=== PATIENT | male | born 1975 | race Caucasian/White ===

== ENCOUNTER → 2020-10-03 | Outpatient (REF) | payer OTHER ==
[2020-10-03 15:40] LABS: BASO # 0.1 10^3/uL (0.0-0.2); BASO % 1.2 % (0.0-1.0); EOS # 0.1 10^3/uL (0.0-0.5); EOS % 2.2 % (0.0-3.0); HEMATOCRIT 48.5 % (42.0-52.0); HEMOGLOBIN 16.7 g/dl (13.5-17.5); LYMPH # 1.4 10^3/uL (1.5-5.0); LYMPH % 22.7 % (24.0-44.0); MEAN CORPUSCULAR HEMOGLOBIN 31.2 pg (27.0-33.0); MEAN CORPUSCULAR HGB CONC 34.4 g/dl (32.0-36.5); MEAN CORPUSCULAR VOLUME 90.5 fl (80.0-96.0); MONO # 0.7 10^3/uL (0.0-0.8); NEUTROPHILS # 3.7 10^3/uL (1.5-8.5); NEUTROPHILS % 62.4 % (36.0-66.0); PLATELET COUNT, AUTOMATED 236 10^3/uL (150-450); RED BLOOD COUNT 5.36 10^6/uL (4.30-6.10)
[2020-10-03 15:45] LABS: MONO SCRN NEGATIVE (NEGATIVE)
== END ==
LOC: M LAB REF 15:18
PROVIDERS: ATTEND Physician Assistant
DX: R50.9 Fever, unspecified (principal)

== ENCOUNTER 2021-01-26 14:19 | Emergency (ER) | payer BC, OTHER ==
[~2021-01-26] VITALS: Ht 182.9 cm; Wt 100.0 kg
[2021-01-26] MEDS ORDERED: HYDR-3490 (14:32)
[2021-01-26] MEDS ORDERED: LOSA100T50 (14:32)
[2021-01-26] MEDS ORDERED: ATEN50TA2 (14:32)
[2021-01-26] MEDS ORDERED: MINO2.5T (14:32)
[2021-01-26] MEDS ORDERED: NS 1,000 ML IV ONE (16:20)
[2021-01-26 17:05] LABS: BASO % 0.4 % (0.0-1.0); EOS % 0.3 % (0.0-3.0); HEMATOCRIT 48.7 % (42.0-52.0); HEMOGLOBIN 17.1 g/dl (13.5-17.5); LYMPH # 1.1 10^3/uL (1.5-5.0); LYMPH % 9.6 % (24.0-44.0); MEAN CORPUSCULAR HEMOGLOBIN 32.1 pg (27.0-33.0); MEAN CORPUSCULAR HGB CONC 35.1 g/dl (32.0-36.5); MEAN CORPUSCULAR VOLUME 91.4 fl (80.0-96.0); MONO # 1.4 10^3/uL (0.0-0.8); MONO % 12.1 % (2.0-8.0); NEUTROPHILS # 8.8 10^3/uL (1.5-8.5); PLATELET COUNT, AUTOMATED 209 10^3/uL (150-450); RED BLOOD COUNT 5.33 10^6/uL (4.30-6.10); WHITE BLOOD COUNT 11.4 10^3/uL (4.0-10.0)
--- NOTE | 2021-01-26 17:16 | REP ---
INDICATION: swelling, tenderness COMPARISON: 04/03/2012. TECHNIQUE: There are five views. FINDINGS: There is soft tissue thickening and likely edema inferior to the patella and medially. This is similar to the prior study. The patella appears displaced cephalic, also similar to the prior study. At the time of the prior study an MRI demonstrated patellar tendon rupture with the clark's point tendon torn from the inferior pole of the patella. Findings today again suggest patellar tendon rupture. There is no fracture. No joint effusion. Mineralization and joint spaces are unremarkable. IMPRESSION: Infrapatellar soft tissue thickening, possibly edema and slight superior displacement of the patellar compatible patellar tendon rupture, as previously. This should be correlated clinically. MRI might be considered for confirmation. <Electronically signed by Babar Conteh > 01/26/21 [id number]
[2021-01-26 17:29] LABS: C REACTIVE PROTEIN QUANTITATIV 12.8 MG/DL (0.00-0.30); ERYTHROCYTE SEDIMENTATION RATE 16 mm/hr (0-15); URIC ACID 6.6 MG/DL (3.5-7.2)
[2021-01-26] MEDS ORDERED: ACETAMINOPHEN 500 MG TAB PO ONE (18:10)
--- NOTE | 2021-01-26 20:26 | REPVR ---
PROCEDURE INFORMATION: Exam: MR Left Lower Extremity Joint Without Contrast, Knee Exam date and time: 01/26/2021 8:09 PM Age: 45 years old Clinical indication: Knee; Left; Prior surgery; Surgery date: 6+ months; Surgery type: Patellar tendon repair >10 years prior; Patient HX: PT states patellar tendon rupture 10 years prior with SX to fix tear, no recent injury, swelling for two days redness, pain; Additional info: Possible patellar tendon rupture, no wilfredo, swelling TECHNIQUE: Imaging protocol: MR of the Left lower extremity joint without contrast. Exam focused on the knee. COMPARISON: CR Knee, complete 01/26/2021 4:34 PM FINDINGS: Subcutaneous soft tissue swelling anteriorly, with edema or hemorrhage in Hoffa's fat, and moderately large knee joint effusion is also present Osseous structures are normally aligned Normal overall pattern of marrow signal. No diffuse marrow replacement process. No acute fracture or osteochondral lesion. Elongated lower pole patella consistent with prior patellar tendon abnormality, and edema and cystic change in the lower pole patella. No evidence of an acute fracture. There is however a recurrent tear of the proximal patellar ligament from the lower pole patella, with thickening, intermediate signal and macerated appearance of the proximal 3 cm of the patellar ligament. There may be a few superficial fibers anteriorly remaining intact but the majority of the ligament is torn and retracted roughly 1 cm. The distal attachment on the tibia is intact. Quadriceps tendon is normal and I do not see evidence of acute patellar retinacular tear Medial collateral ligament is intact. IT band, FCL, biceps femoris tendon and popliteus tendon are unremarkable. ACL and PCL have normal orientation and signal. Medial meniscus appears normal. No communicating tear or para-meniscal cyst. Lateral meniscus appears normal. No communicating tear or para-meniscal cyst. Cartilage signal and thickness is maintained in all compartments of the knee aside from mild medial compartment chondral thinning IMPRESSION: Recurrent tear of the proximal patellar ligament from the inferior pole patella, essentially complete, with roughly 1 cm of retraction and with macerated appearing proximal 3 cm of ligament. No osseous fracture deformity. Electronically signed by: Sascha Cuba On 01/26/2021 20:26:49 PM
[2021-01-26 20:57] VITALS: BP 129/80
--- NOTE | 2021-01-27 06:53 | ED PDOC ---
Post-Departure Follow-Up left knee xray and mri faxed to dr roberson for fu Nisha Sanches MD Jan 27, 2021 06:53
== END 2021-01-26 21:05 | disposition home or self-care (01) ==
LOC: M ED 14:19
DX: S96.812A Strain of other specified muscles and tendons at ankle and foot level, left foot, initial encounter (principal); X58.XXXA Exposure to other specified factors, initial encounter; Y92.89 Other specified places as the place of occurrence of the external cause; Y93.89 Activity, other specified; Y99.8 Other external cause status; I10 Essential (primary) hypertension; Z79.899 Other long term (current) drug therapy; Z87.828 Personal history of other (healed) physical injury and trauma

== ENCOUNTER 2021-02-06 11:15 | Day surgery (SDC) | payer BC, OTHER ==
[~2021-02-06] VITALS: Ht 182.9 cm; Wt 99.3 kg
[~2021-02-06 11:15] MED LIST: ATEN50TA2; HYDR-3490; LOSA100T50; LR 1,000 ML IV ONE; MINO2.5T; ceFAZolin SOD 2 GM in IV 1 EA IV ONE
[2021-02-06] MEDS ORDERED: ceFAZolin 1GM VIAL (J0690 PER 500MG) As Ordered ONE (12:52)
[2021-02-06] MEDS ORDERED: BUPIVACAINE/EPIN 0.25% 30 ML VIAL As Ordered ONE (13:00)
[2021-02-06] MEDS ORDERED: LIDOCAINE 2% 100MG/5ML SDV (FOR ANES.) As Ordered ONE (13:24)
[2021-02-06] MEDS ORDERED: fentaNYL 100 MCG/2 ML INJECTION (J3010) As Ordered ONE ×2 (13:24→16:19)
[2021-02-06] MEDS ORDERED: MIDAZOLAM INJ 2MG/2ML VIAL (J2250 PER 1MG) As Ordered ONE (13:24)
[2021-02-06] MEDS ORDERED: propofoL 200 MG/20 ML VIAL As Ordered ONE (13:24)
[2021-02-06] MEDS ORDERED: ePHEDrine SULFATE 25 MG/5 ML(5MG/ML) SYRINGE As Ordered ONE (13:58)
[2021-02-06] MEDS ORDERED: HYDROmorphone HCL 2 MG/ML 1ML VIAL (J1170) As Ordered ONE (14:33)
[2021-02-06] MEDS ORDERED: ONDANSETRON 4MG/2ML VIAL As Ordered ONE (16:09)
[2021-02-06] MEDS ORDERED: ACETAMINOPHEN TAB 650MG DOSE (2X325MG) PO PRN (16:20)
[2021-02-06] MEDS ORDERED: LR 1,000 ML IV SCH ×2 (16:20)
[2021-02-06] MEDS ORDERED: ONDANSETRON 4MG/2ML VIAL IV PRN ×2 (16:20→16:25)
[2021-02-06] MEDS: fentaNYL 100 MCG/2 ML INJECTION (J3010) IV PRN ×4 (16:20→16:37)
[2021-02-06] MEDS ORDERED: PERCOCET 5MG/325MG TAB PO PRN (16:25)
[2021-02-06] MEDS ORDERED: MORPHINE 2 MG/ML 1ML VIAL (J2270) IV PRN (16:25)
[2021-02-06] MEDS: oxyCODONE 5MG TAB PO PRN ×2 (16:27→16:57)
[2021-02-06] MEDS: HYDROMORPHONE HCL 0.5 MG/ 0.5 ML SYRINGE (J1170 PER 1) IV PRN ×2 (16:42→16:47)
[2021-02-06 17:30] VITALS: BP 170/98
--- NOTE | 2021-02-06 18:01 | ROOPDOC ---
[facility] Report Of Operation Report of Operation DATE OF PROCEDURE: 02/06/21 PREPROCEDURE DIAGNOSES: Left patellar tendon rupture. POSTPROCEDURE DIAGNOSES: Left patellar tendon rupture. PROCEDURE: Left patellar tendon repair with allograft patch Arthrex acellular dermis SURGEON: Dr. Faisal Del Real MD ENVIRONMENTAL AIR SPECIALIST: ANESTHESIA: Gen. anesthesia Dr. Roper. ESTIMATED BLOOD LOSS: Approximately 50 mL. COMPLICATIONS: None. REMARKS: None. PROCEDURE NOTE: This 45-year-old man had 2-3 weeks of inability to ambulate and increasing knee pain. MRI is consistent with patellar tendon rupture. He has stage II kidney disease. I discussed the pros and cons risks and benefits of nonsurgical treatment versus surgical repair possible need for allograft patch. He understands wish to proceed marked left lower extremity. DESCRIPTION OF PROCEDURE: Patient was brought to the operating theater. They were placed supine on the operating room table. Tourniquet was applied to the left thigh properly padded. All bony prominences were appropriately padded. Gen. anesthesia was induced. 2 g of IV Ancef was administered prior to starting the case. Limb was prepped and draped in the usual sterile fashion with chlorhexidine-based prep solution over 3 minutes prep solution drying time prior to draping. Preoperative timeout was performed to confirm the site the patient and surgery. I began by elevating the limb and inflating the tourniquet to 250 mmHg. I made a standard anterior longitudinal incision using the old incision. I carried the dissection down through skin and subcutaneous tissue achieving meticulous hemostasis. There was quite a bit of scar tissue and adhesions to be lysed. I identified the patellar tendon. There is copious amount of scar tissue and stretching out the proximal end of the tendon, possibly chronic in nature or acute on chronic rupture and stretching of the previously placed sutures. I debrided this down to healthy margins of tendon. There was what appeared to be possible infection or old hematoma White dark brown reddish fluid that I did send for cultures and that turned out to be negative on the Gram stain. This is likely combination of gout fluid calcification and old hematoma. I used 2 #2 FiberWire sutures in a running locking Krakw type stitch up and down the patellar tendon to create 4 suture limbs proximally. I used a rongeur to create a bleeding bed at the distal end of the patella. I fixed the patella in full extension. I used 2 Arthrex 4.75 mm biocomposite suture anchors. I used the drill followed by the tap. The suture anchors were preloaded with fiber tape. I opened up the Arthrex acellular dermis patch. I trimmed this to fit. I secured the anchors the distal end of the patella with the leg in full extension to repair the [place] patellar tendon. I then passed the fiber tape sutures through each corner of the patch then to create a box and X configuration and then passed the sutures again through the distal corners of the patch. I then loaded these into PEEK suture anchors to secure the patch in place distally at the proximal border of the tibia, distal to the patellar tendon insertion. I then used the stay sutures at all 4 corners of the suture anchors to secure the graft again fully in place. Tourniquet was let down wounds thoroughly irrigated subcutaneous tissue closed with interrupted 2-0 Vicryl sutures and skin davon. Skin was cleaned with wet and dry dressing. 10 mL of quarter percent Marcaine was instilled and around the incision site. Adaptic 4 x 8 gauze and abdominal pad dressings were then placed and wrapped with 6 inch Juan Luis bandage. Patient left lower extremity was placed into a knee immobilizer in full extension. Patient was woken up from the general anesthetic transferred off the operating room table and taken to postanesthetic care unit in stable condition. All sponge needle and instrument counts are correct. No complications. Plan the patient is to be partial weightbearing in full extension for 4-6 weeks follow-up in the office in 2 weeks' time and be discharged home according to comfort. Prescription sent to the pharmacy of choice electronically. Risk factors for harms from taking opioid medications discussed and assessed including but not limited to personal or family history of substance use disorder, anxiety or depression, , age 65 or older, COPD or other underlying respiratory conditions, and renal or hepatic insufficiency. Discussed with patient concerns and determined any harms they may experience or be currently experiencing such as nausea or constipation, feeling sedated or confused, breathing interruptions during sleep, or taking or craving more opioids than prescribed or difficulty controlling use (addiction). Discussed early warning signs of overdose including confusion, sedation, slurred speech, abnormal gait. Postoperative wound instructions were given. It was recommended to keep the wound clean and dry. Dressing changes as needed. It was reinforced with the patient that they should call us or be seen immediately for redness, drainage, or fever. . FAISAL DEL REAL MD Feb 06, 2021 18:01
== END 2021-02-06 17:36 | disposition home or self-care (01) ==
LOC: M SDC 11:15
PROVIDERS: ATTEND Orthopaedic Surgery Sports Medicine
DX: M66.262 Spontaneous rupture of extensor tendons, left lower leg (principal); I12.9 Hypertensive chronic kidney disease with stage 1 through stage 4 chronic kidney disease, or unspecified chronic kidney disease; E78.00 Pure hypercholesterolemia, unspecified; K57.90 Diverticulosis of intestine, part unspecified, without perforation or abscess without bleeding; M25.562 Pain in left knee; F41.9 Anxiety disorder, unspecified; N18.2 Chronic kidney disease, stage 2 (mild); N40.0 Benign prostatic hyperplasia without lower urinary tract symptoms; F17.220 Nicotine dependence, chewing tobacco, uncomplicated; Z79.899 Other long term (current) drug therapy
CPT/HCPCS: 27381; 87070; 87075; 87077; 87205; C1713; C1762; J0690; J1170; J2250; J2405; J3010

== ENCOUNTER → 2021-02-18 | Outpatient (CLI) | payer BC, OTHER ==
[~2021-02-18] MED LIST changes: -LR 1,000 ML IV ONE; -ceFAZolin SOD 2 GM in IV 1 EA IV ONE
== END ==
LOC: M SOG 13:20
PROVIDERS: ATTEND Orthopaedic Surgery Sports Medicine
DX: Z53.8 Procedure and treatment not carried out for other reasons (principal)

== ENCOUNTER 2021-07-27 19:40 | Emergency (ER) | payer BC, OTHER ==
[~2021-07-27] VITALS: Ht 182.9 cm; Wt 106.0 kg
[2021-07-27 22:23] LABS: BASO # 0.1 10^3/uL (0.0-0.2); BASO % 0.7 % (0.0-1.0); EOS # 0.1 10^3/uL (0.0-0.5); EOS % 1.1 % (0.0-3.0); HEMATOCRIT 46.6 % (42.0-52.0); HEMOGLOBIN 17.2 g/dl (13.5-17.5); LYMPH # 1.4 10^3/uL (1.5-5.0); LYMPH % 15.1 % (24.0-44.0); MEAN CORPUSCULAR HEMOGLOBIN 33.1 pg (27.0-33.0); MEAN CORPUSCULAR HGB CONC 36.9 g/dl (32.0-36.5); MEAN CORPUSCULAR VOLUME 89.8 fl (80.0-96.0); MONO # 0.9 10^3/uL (0.0-0.8); MONO % 9.7 % (2.0-8.0); NEUTROPHILS # 6.8 10^3/uL (1.5-8.5); NEUTROPHILS % 72.9 % (36.0-66.0); PLATELET COUNT, AUTOMATED 178 10^3/uL (150-450); RED BLOOD COUNT 5.19 10^6/uL (4.30-6.10); WHITE BLOOD COUNT 9.4 10^3/uL (4.0-10.0)
[2021-07-27 23:04] VITALS: BP 138/88
--- NOTE | 2021-07-27 23:23 | REPVR ---
PROCEDURE INFORMATION: Exam: XR Chest Exam date and time: 07/27/2021 10:05 PM Age: 45 years old Clinical indication: Other: Cough and chest congestion TECHNIQUE: Imaging protocol: XR of the chest. Views: 1 view. COMPARISON: No relevant prior studies available. FINDINGS: Lungs: Asymmetric 0.9 cm nodule projects over the left upper lobe, in between the posterior aspects of the left 7th and 8th ribs, unlikely to be nipple shadow. No focal areas of consolidation. Pleural spaces: Unremarkable. No pleural effusion. No pneumothorax. Heart/Mediastinum: Cardiac and mediastinal silhouettes are unremarkable. Bones/joints: No acute fracture or dislocation. IMPRESSION: Asymmetric 0.9 cm nodule projects over the left upper lobe. Recommend follow-up chest CT. Electronically signed by: Castro Akers On 07/27/2021 23:22:53 PM
== END 2021-07-27 23:04 | disposition home or self-care (01) ==
LOC: M ED 19:40
DX: J06.9 Acute upper respiratory infection, unspecified (principal); B34.8 Other viral infections of unspecified site; I10 Essential (primary) hypertension; Z79.899 Other long term (current) drug therapy; F17.210 Nicotine dependence, cigarettes, uncomplicated

== ENCOUNTER 2022-01-20 16:12 | Emergency (ER) | payer BC, OTHER ==
[~2022-01-20] VITALS: Ht 182.9 cm; Wt 107.7 kg
[~2022-01-20 16:12] MED LIST changes: +LOSA100T45; -LOSA100T50
[2022-01-20] MEDS ORDERED: POTA1TAB23 (16:29)
[2022-01-20] MEDS ORDERED: MAGN50TA (16:29)
[2022-01-20] MEDS ORDERED: ATEN100T (16:29)
[2022-01-20 19:51] LABS: BASO # 0.1 10^3/uL (0.0-0.2); BASO % 0.6 % (0.0-1.0); EOS # 0.2 10^3/uL (0.0-0.5); EOS % 1.8 % (0.0-3.0); HEMATOCRIT 48.5 % (42.0-52.0); HEMOGLOBIN 17.5 g/dl (13.5-17.5); LYMPH # 1.7 10^3/uL (1.5-5.0); MEAN CORPUSCULAR HGB CONC 36.1 g/dl (32.0-36.5); MEAN CORPUSCULAR VOLUME 88.7 fl (80.0-96.0); MONO # 0.9 10^3/uL (0.0-0.8); MONO % 10.3 % (2.0-8.0); NEUTROPHILS # 5.6 10^3/uL (1.5-8.5); NEUTROPHILS % 66.9 % (36.0-66.0); PLATELET COUNT, AUTOMATED 225 10^3/uL (150-450); RED BLOOD COUNT 5.47 10^6/uL (4.30-6.10); WHITE BLOOD COUNT 8.4 10^3/uL (4.0-10.0)
[2022-01-20 20:17] LABS: CK-MB VALUE MASS < 1.0 NG/ML (<3.6); CPK CREATINE PHOSPHOKINASE 96 U/L (39-308); MB/CK RELATIVE INDEX 1.04 (< OR =4)
[2022-01-20 20:24] LABS: ALBUMIN 4.4 GM/DL (3.2-5.2); ALT/SGPT 61 U/L (12-78); BILIRUBIN,TOTAL 0.5 MG/DL (0.2-1.0); BLOOD UREA NITROGEN 21 MG/DL (7-18); CALCIUM LEVEL 9.5 MG/DL (8.5-10.1); CARBON DIOXIDE LEVEL 28 MEQ/L (21-32); CHLORIDE LEVEL 107 MEQ/L (98-107); CREATININE FOR GFR 1.19 MG/DL (0.70-1.30); FREE T4 0.81 NG/DL (0.76-1.46); GLOMERULAR FILTRATION RATE > 60.0 (>60); GLUCOSE, FASTING 98 MG/DL (70-100); MAGNESIUM LEVEL 2.3 MG/DL (1.8-2.4); POTASSIUM SERUM 4.3 MEQ/L (3.5-5.1); SODIUM LEVEL 141 MEQ/L (136-145); THYROID STIMULATING HORMONE 0.801 uIU/ML (0.358-3.740); TOTAL PROTEIN 8.1 GM/DL (6.4-8.2)
[2022-01-20 20:44] LABS: APPEARANCE, URINE CLEAR (CLEAR); BACTERIA, URINE AUTO NEGATIVE (NEGATIVE); BILIRUBIN, URINE AUTO NEGATIVE (NEGATIVE); BLOOD, URINE BLOOD NEGATIVE (NEGATIVE); COLOR, URINE YELLOW (YELLOW); GLUCOSE, URINE (UA) AUTO NEGATIVE (NEGATIVE); KETONE, URINE AUTO NEGATIVE (NEGATIVE); LEUKOCYTE ESTERASE, URINE AUTO NEGATIVE (NEGATIVE); MUCUS, URINE SMALL (NEGATIVE); NITRITE, URINE AUTO NEGATIVE (NEGATIVE); PROTEIN, URINE AUTO NEGATIVE (NEGATIVE); RBC, URINE AUTO 0 /HPF (0-3); SPECIFIC GRAVITY URINE AUTO 1.025 (1.002-1.035); SQUAMOUS EPITHELIAL CELL UR AU 0 /HPF (0-6); UROBILINOGEN, URINE AUTO 0.2 mg/dL (0.0-2.0); WBC, URINE AUTO 0 /HPF (0-3)
[2022-01-20 21:45] VITALS: BP 138/90
== END 2022-01-20 22:04 | disposition home or self-care (01) ==
LOC: M ED 16:12
DX: G56.23 Lesion of ulnar nerve, bilateral upper limbs (principal); R23.2 Flushing; I12.9 Hypertensive chronic kidney disease with stage 1 through stage 4 chronic kidney disease, or unspecified chronic kidney disease; N18.2 Chronic kidney disease, stage 2 (mild); Z79.899 Other long term (current) drug therapy

== ENCOUNTER → 2022-01-28 | Outpatient (CLI) | payer BC ==
[~2022-01-28] MED LIST changes: +ATEN100T; +MAGN50TA; +POTA1TAB23
== END ==
LOC: M WUC 09:56
PROVIDERS: ATTEND Internal Medicine
DX: M54.12 Radiculopathy, cervical region (principal)

== ENCOUNTER → 2022-01-29 | Outpatient (REF) | payer BC | LOC: M LAB REF 12:00 | PROVIDERS: ATTEND Internal Medicine | DX: I10 Essential (primary) hypertension (principal); R68.82 Decreased libido; F52.21 Male erectile disorder; R19.7 Diarrhea, unspecified; R23.2 Flushing ==

== ENCOUNTER → 2022-02-25 | Outpatient (REF) | payer BC | LOC: M LAB REF 11:38 | PROVIDERS: ATTEND Internal Medicine | DX: R23.2 Flushing (principal); R19.7 Diarrhea, unspecified ==

== ENCOUNTER → 2022-04-14 | Outpatient (REF) | payer BC ==
[2022-04-14 17:39] LABS: CA19-9 TUMOR MARKER,CARBOHYDRA 13.1 U/ML (<35.0)
== END ==
LOC: M LAB REF 16:04
PROVIDERS: ATTEND Internal Medicine
DX: R10.13 Epigastric pain (principal); K86.1 Other chronic pancreatitis; R19.7 Diarrhea, unspecified

== ENCOUNTER → 2022-06-16 | Outpatient (CLI) | payer BC ==
[~2022-06-16] MED LIST changes: +ISOVUE-370 76% 100ML VIAL As Ordered ONE
== END ==
LOC: M RAD 09:13
PROVIDERS: ATTEND Internal Medicine
DX: R10.13 Epigastric pain (principal)
CPT/HCPCS: 74160; Q9967

== ENCOUNTER 2022-11-13 14:50 | Emergency (ER) | payer BC, OTHER ==
[~2022-11-13] VITALS: Ht 182.9 cm; Wt 108.7 kg
[~2022-11-13 14:50] MED LIST changes: -ISOVUE-370 76% 100ML VIAL As Ordered ONE
[2022-11-13 15:22] LABS: BASO # 0.1 10^3/uL (0.0-0.2); BASO % 0.9 % (0.0-1.0); EOS # 0.1 10^3/uL (0.0-0.5); EOS % 1.8 % (0.0-3.0); HEMATOCRIT 50.3 % (42.0-52.0); HEMOGLOBIN 17.9 g/dl (13.5-17.5); LYMPH # 1.4 10^3/uL (1.5-5.0); LYMPH % 20.7 % (24.0-44.0); MEAN CORPUSCULAR HGB CONC 35.6 g/dl (32.0-36.5); MONO # 0.8 10^3/uL (0.0-0.8); MONO % 11.2 % (2.0-8.0); NEUTROPHILS # 4.3 10^3/uL (1.5-8.5); PLATELET COUNT, AUTOMATED 235 10^3/uL (150-450); RED BLOOD COUNT 5.59 10^6/uL (4.30-6.10); WHITE BLOOD COUNT 6.7 10^3/uL (4.0-10.0)
[2022-11-13 15:43] LABS: INR 0.93; PROTHROMBIN TIME 12.7 SECONDS (12.5-14.5)
[2022-11-13 15:45] LABS: CK-MB VALUE MASS < 1.0 NG/ML (<3.6); LIPASE 49 U/L (12-53)
[2022-11-13 15:47] LABS: ALBUMIN 4.3 G/DL (3.2-5.2); ALKALINE PHOSPHATASE 63 U/L (46-116); ALT/SGPT 62 U/L (7.0-40); AST/SGOT 40 U/L (<34); BILIRUBIN,DIRECT 0.2 MG/DL (<0.4); BILIRUBIN,TOTAL 0.5 MG/DL (0.3-1.2); BLOOD UREA NITROGEN 22 MG/DL (9-23); CALCIUM LEVEL 10.1 MG/DL (8.5-10.1); CARBON DIOXIDE LEVEL 30 MMOL/L (20-31); CHLORIDE LEVEL 103 MMOL/L (98-107); CPK CREATINE PHOSPHOKINASE 169 U/L (46-171); GLOMERULAR FILTRATION RATE > 60.0 (>60); GLUCOSE, FASTING 113 MG/DL (60-100); MB/CK RELATIVE INDEX 0.59 (< OR =4); POTASSIUM SERUM 3.6 MMOL/L (3.5-5.1); SODIUM LEVEL 141 MMOL/L (136-145); TOTAL PROTEIN 7.7 G/DL (5.7-8.2)
[2022-11-13 15:48] LABS: THYROID STIMULATING HORMONE 0.557 uIU/ML (0.55-4.78)
[2022-11-13 15:50] LABS: FREE T4 0.97 NG/DL (0.89-1.76)
[2022-11-13 19:15] LABS: CK-MB VALUE MASS < 1.0 NG/ML (<3.6)
[2022-11-13] MEDS ORDERED: amLODIPine 5 MG TAB PO STA (19:20)
[2022-11-13] MEDS ORDERED: LOSARTAN 50MG TABLET PO STA (19:20)
[2022-11-13 19:21] LABS: CPK CREATINE PHOSPHOKINASE 149 U/L (46-171); MB/CK RELATIVE INDEX 0.67 (< OR =4)
[2022-11-13] MEDS ORDERED: ISOVUE-370 76% 100ML VIAL As Ordered ONE (19:22)
[2022-11-13 19:43] VITALS: BP 175/96
[2022-11-13] MEDS ORDERED: KETOROLAC 30 MG/ML 1ML VIAL IV ONE (19:55)
[2022-11-13 21:30] VITALS: BP 134/84
== END 2022-11-13 21:57 | disposition home or self-care (01) ==
LOC: M ED 19:05
DX: R07.89 Other chest pain (principal); R94.31 Abnormal electrocardiogram [ECG] [EKG]; K76.0 Fatty (change of) liver, not elsewhere classified; I12.9 Hypertensive chronic kidney disease with stage 1 through stage 4 chronic kidney disease, or unspecified chronic kidney disease; N18.30 Chronic kidney disease, stage 3 unspecified; K57.32 Diverticulitis of large intestine without perforation or abscess without bleeding; Z79.899 Other long term (current) drug therapy
CPT/HCPCS: 36415; 71275; 80048; 80076; 82550; 82553; 83690; 84439; 84443; 84484; 85025; 85610; 85730; 93005; 93041; 94760; 96374; 99285; J1885

== ENCOUNTER → 2022-12-29 | Outpatient (REF) | payer OTHER, MEDICAID, BC ==
[2022-12-29 16:41] LABS: BASO # 0.1 10^3/uL (0.0-0.2); BASO % 0.9 % (0.0-1.0); EOS # 0.3 10^3/uL (0.0-0.5); EOS % 3.6 % (0.0-3.0); HEMATOCRIT 46.4 % (42.0-52.0); HEMOGLOBIN 16.3 g/dl (13.5-17.5); LYMPH % 24.7 % (24.0-44.0); MEAN CORPUSCULAR HGB CONC 35.1 g/dl (32.0-36.5); MEAN CORPUSCULAR VOLUME 91.2 fl (80.0-96.0); MONO # 0.9 10^3/uL (0.0-0.8); MONO % 10.4 % (2.0-8.0); NEUTROPHILS # 4.9 10^3/uL (1.5-8.5); NEUTROPHILS % 59.9 % (36.0-66.0); PLATELET COUNT, AUTOMATED 236 10^3/uL (150-450); RED BLOOD COUNT 5.09 10^6/uL (4.30-6.10); WHITE BLOOD COUNT 8.2 10^3/uL (4.0-10.0)
[2022-12-30 14:27] LABS: JAK2 MUTATIONS FOR PATH SENDOU See Pathology Report
[2022-12-31 10:08] LABS: ERYTHROPOIETIN 13.9 mIU/mL (2.6-18.5)
== END ==
LOC: M LAB REF 16:05
PROVIDERS: ATTEND Internal Medicine
DX: D75.1 Secondary polycythemia (principal)

== ENCOUNTER → 2023-03-04 | Outpatient (REF) | payer OTHER, BC ==
[~2023-03-04] MED LIST changes: -ATEN100T; +ATEN100T PO; +CHLO125TA PO; +CREO3600 PO; -HYDR-3490; +HYDR-3490 PO; -LOSA100T45; +LOSA100T46 PO; -MAGN50TA; +MAGN50TA PO; -MINO2.5T; +MINO2.5T PO; -POTA1TAB23; +POTA1TAB23 PO; +SPIR-10 PO
[2023-03-04 18:16] LABS: PERCENT SATURATION 20.1 % (19.7-50.0)
[2023-03-04 18:17] LABS: FERRITIN 252.7 NG/ML (10.5-307.3)
== END ==
LOC: M LAB REF 16:31
PROVIDERS: ATTEND Internal Medicine
DX: R74.01 Elevation of levels of liver transaminase levels (principal); G60.9 Hereditary and idiopathic neuropathy, unspecified

== ENCOUNTER → 2023-08-26 | Outpatient (CLI) | payer OTHER ==
[~2023-08-26] MED LIST changes: +HYDR-3713 PO
== END ==
LOC: M PLAIMG 14:07
PROVIDERS: ATTEND Orthopaedic Surgery
DX: M25.562 Pain in left knee (principal)

== ENCOUNTER 2023-11-17 11:48 | Day surgery (SDC) | payer BC, OTHER ==
[~2023-11-17] VITALS: Ht 182.9 cm; Wt 114.8 kg
[~2023-11-17 11:48] MED LIST changes: +CARV25TA PO; +CEFU50TA PO; +NS 1,000 ML IV ONE
[2023-11-17] MEDS ORDERED: LIDOCAINE 2% 100MG/5ML SDV (FOR ANES.) As Ordered ONE (12:41)
[2023-11-17] MEDS ORDERED: propofoL 200 MG/20 ML VIAL As Ordered ONE ×3 (12:41→13:00)
[2023-11-17] MEDS ORDERED: fentaNYL 100 MCG/2 ML INJECTION As Ordered ONE (12:41)
[2023-11-17 13:23] VITALS: TEMP 98.9
[2023-11-17 13:39] VITALS: BP 142/92; O2SAT 96
== END 2023-11-17 13:54 | disposition home or self-care (01) ==
LOC: M OPP 11:48
PROVIDERS: ATTEND Internal Medicine Gastroenterology
DX: K51.40 Inflammatory polyps of colon without complications (principal); K64.8 Other hemorrhoids; K57.30 Diverticulosis of large intestine without perforation or abscess without bleeding; R19.7 Diarrhea, unspecified; K22.89 Other specified disease of esophagus; R10.13 Epigastric pain; F17.220 Nicotine dependence, chewing tobacco, uncomplicated; Z79.2 Long term (current) use of antibiotics; Z79.84 Long term (current) use of oral hypoglycemic drugs; Z79.899 Other long term (current) drug therapy
CPT/HCPCS: 43239; 45380; 45385; 88305; J3010

== ENCOUNTER → 2023-12-03 | Outpatient (REF) | payer BC, OTHER ==
[~2023-12-03] MED LIST changes: -NS 1,000 ML IV ONE
[2023-12-05 08:11] LABS: LDL DIRECT 78 mg/dL (0-99)
== END ==
LOC: M LAB REF 12:08
PROVIDERS: ATTEND Internal Medicine
DX: D40.12 Neoplasm of uncertain behavior of left testis (principal)

== ENCOUNTER → 2023-12-15 | Outpatient (CLI) | payer BC, OTHER | LOC: M RAD 11:58 | PROVIDERS: ATTEND Internal Medicine | DX: D40.12 Neoplasm of uncertain behavior of left testis (principal) ==

== ENCOUNTER → 2024-02-09 | Outpatient (REF) | LOC: M PLAIMG 12:17 | PROVIDERS: ATTEND Internal Medicine | DX: M25.562 Pain in left knee (principal) ==

== ENCOUNTER → 2024-02-11 | Outpatient (REF) | payer BC, OTHER ==
[2024-02-11 13:33] LABS: HEMATOCRIT 46.3 % (42.0-52.0); HEMOGLOBIN 16.2 g/dl (13.5-17.5); MEAN CORPUSCULAR HEMOGLOBIN 32.3 pg (27.0-33.0); MEAN CORPUSCULAR VOLUME 92.2 fl (80.0-96.0); PLATELET COUNT, AUTOMATED 214 10^3/uL (150-450); RED BLOOD COUNT 5.02 10^6/uL (4.30-6.10); WHITE BLOOD COUNT 7.6 10^3/uL (4.0-10.0)
[2024-02-11 13:53] LABS: URIC ACID 8.7 MG/DL (3.7-9.2)
[2024-02-11 13:56] LABS: ALBUMIN 3.9 G/DL (3.2-5.2); ALKALINE PHOSPHATASE 49 U/L (46-116); ALT/SGPT 44 U/L (7.0-40); AST/SGOT 29 U/L (<34); BILIRUBIN,TOTAL 0.7 MG/DL (0.3-1.2); BLOOD UREA NITROGEN 17 MG/DL (9-23); CALCIUM LEVEL 9.5 MG/DL (8.5-10.1); CARBON DIOXIDE LEVEL 30 MMOL/L (20-31); CHLORIDE LEVEL 104 MMOL/L (98-107); CREATININE FOR GFR 1.11 MG/DL (0.70-1.30); GLOMERULAR FILTRATION RATE > 60.0 (>60); GLUCOSE, FASTING 102 MG/DL (60-100); POTASSIUM SERUM 3.8 MMOL/L (3.5-5.1); SODIUM LEVEL 139 MMOL/L (136-145); TOTAL PROTEIN 7.2 G/DL (5.7-8.2)
== END ==
LOC: M LABWUC 12:49
PROVIDERS: ATTEND Student in an Organized Health Care Education/Training Program
DX: M79.672 Pain in left foot (principal)